=== PATIENT | female | born 1995 | race American Indian/Alaskan Native ===

== ENCOUNTER 2021-06-30 22:49 | Emergency (ER) | payer SELFPAY ==
--- NOTE | 2021-07-01 04:59 | Emergency Department Report ---
- General Chief Complaint: Dyspnea/Respdistress Stated Complaint: DIFF BREATHING, LUMP BREAST FATIGUE Source: patient Mode of arrival: Ambulatory Limitations: No Limitations - History of Present Illness Initial Comments: 25-year-old female presents to the ED stuffy nose and headache x3-week. Patient states that she recently moved here from [place] and has been dealing with allergy issues. Patient states that she been feeling fatigued at work. She states that she noticed that she is get fatigue when she is bending forward. Patient denies any chest pain ,shortness of breath, nausea or vomiting at present time. Patient is alert and oriented x3. No acute distress noted. No ill appearance noted. MD Complaint: nasal congestion Severity scale (0 -10): 0 Improves With: nothing Worsens With: nothing - Related Data Previous Rx's Medication Instructions Recorded Last Taken Type Doxycycline Hyclate [Doxycycline 100 mg PO Q12HR 10 Days #20 tab 07/01/21 Unknown Rx Hyclate TAB] predniSONE [Deltasone] 50 mg PO QDAY 5 Days #5 tab 07/01/21 Unknown Rx Allergies Allergy/AdvReac Type Severity Reaction Status Date / Time Penicillins AdvReac Hives Verified 07/01/21 05:02 ED Review of Systems ROS: Stated complaint: DIFF BREATHING, LUMP BREAST FATIGUE Other details as noted in HPI Constitutional: denies: chills, fever Eyes: denies: eye pain, eye discharge, vision change ENT: denies: ear pain, throat pain Respiratory: denies: cough, shortness of breath, wheezing Cardiovascular: denies: chest pain, palpitations Endocrine: no symptoms reported Gastrointestinal: denies: abdominal pain, nausea, diarrhea Genitourinary: denies: urgency, dysuria, discharge Musculoskeletal: denies: back pain, joint swelling, arthralgia Skin: denies: rash, lesions Neurological: denies: headache, weakness, paresthesias Psychiatric: denies: anxiety, depression Hematological/Lymphatic: denies: easy bleeding, easy bruising ED Past Medical Hx - Medications Home Medications: Home Medications Medication Instructions Recorded Confirmed Last Taken Type Doxycycline Hyclate [Doxycycline 100 mg PO Q12HR 10 Days #20 tab 07/01/21 Unknown Rx Hyclate TAB] predniSONE [Deltasone] 50 mg PO QDAY 5 Days #5 tab 07/01/21 Unknown Rx ED Physical Exam - General Limitations: No Limitations General appearance: alert, in no apparent distress - Head Head exam: Present: atraumatic, normocephalic - Eye Eye exam: Present: normal appearance - ENT ENT exam: Present: mucous membranes moist - Expanded ENT Exam Expanded TM/Canal exam: Mastoid Tenderness: Right TM, Left TM (frontal ) - Neck Neck exam: Present: normal inspection - Respiratory Respiratory exam: Present: normal lung sounds bilaterally. Absent: respiratory distress - Cardiovascular Cardiovascular Exam: Present: regular rate, normal rhythm. Absent: systolic murmur, diastolic murmur, rubs, gallop - GI/Abdominal GI/Abdominal exam: Present: soft, normal bowel sounds - Extremities Exam Extremities exam: Present: normal inspection - Back Exam Back exam: Present: normal inspection - Neurological Exam Neurological exam: Present: alert, oriented X3 - Psychiatric Psychiatric exam: Present: normal affect, normal mood - Skin Skin exam: Present: warm, dry, intact, normal color. Absent: rash ED Course Vital Signs 06/30/21 22:52 Temperature 98.4 F Pulse Rate 88 Respiratory 18 Rate Blood Pressure 149/78 O2 Sat by Pulse 97 Oximetry ED Medical Decision Making - Medical Decision Making 25-year-old female presents to the ED stuffy nose and headache x3-week. Patient states that she recently moved here from [place] and has been dealing with allergy issues. Patient states that she been feeling fatigued at work. She states that she noticed that she is get fatigue when she is bending forward. Patient denies any chest pain ,shortness of breath, nausea or vomiting at present time. Patient is alert and oriented x3. No acute distress noted. No ill appearance noted. Physical examination patient frontal tenderness noted. Rechecked the patient is resting quietly quietly and comfortable and feeling better. I discussed the results of diagnostic study, my clinical impression and the plan for further treatment with the patient. Patient agrees with plan and discharge at this present time. All question addressed. I have given the patient instruction regarding a diagnosis ,expectation ,follow- up and return precaution. I explained to the patient that emergent condition may arise and to return to the ED for new worsen and any new persisting condition. I have explained the importance of following up with the primary care physician or referral physician listed below has instructed. The patient verbalized understanding of discharge instruction. Critical care attestation.: If time is entered above; I have spent that time in minutes in the direct care of this critically ill patient, excluding procedure time. ED Disposition Clinical Impression: Acute sinusitis Qualifiers: Sinusitis location: frontal Recurrence: non-recurrent Qualified Code(s): J01.10 - Acute frontal sinusitis, unspecified Disposition: HOME / SELF CARE / HOMELESS Is pt being admited?: No Does the pt Need Aspirin: No Condition: Stable Instructions: Sinusitis, Adult, [id number] Additional Instructions: Take medication as prescribed Return to the ED for any worsening symptom Prescriptions: predniSONE [Deltasone] 50 mg PO QDAY 5 Days #5 tab Doxycycline Hyclate [Doxycycline Hyclate TAB] 100 mg PO Q12HR 10 Days #20 tab Referrals: [facility] [Provider Group] - 3-5 Days Forms: Work/School Release Form(ED) Time of Disposition: 05:05
[2021-07-01 05:38] VITALS: BP 137/74
== END 2021-07-01 05:38 | disposition home or self-care (01) ==
LOC: ED 22:49
DX: J01.90 Acute sinusitis, unspecified (principal); Z88.0 Allergy status to penicillin; Z79.899 Other long term (current) drug therapy
CPT/HCPCS: 99282

== ENCOUNTER 2021-07-23 18:55 | Emergency (ER) | payer OTHER ==
[2021-07-24] MEDS ORDERED: CLINDAMYCIN 150 MG CAP PO ONE (01:09)
[2021-07-24] MEDS ORDERED: HYDROcodone/ACETAMINOPHEN 5-325 MG TAB PO ONE (01:09)
[2021-07-24] MEDS ORDERED: IBUPROFEN 600 MG TAB PO ONE (01:09)
[2021-07-24] MEDS ORDERED: ONDANSETRON 4 MG ODT TAB PO ONE (01:09)
--- NOTE | 2021-07-24 01:42 | Emergency Department Report ---
ED General Adult HPI - General Chief complaint: Dental/Oral Stated complaint: CHIPPED/INFLAMED GUMS Source: patient Mode of arrival: Ambulatory Limitations: No Limitations - History of Present Illness Initial comments: Patient is a 25-year-old -[place] female with no past medical history who presents to the ED with complaint of acute onset persistent right mandibular premolar molar tooth ache with swollen gums and multiple dental caries for the last 5 days. Patient states that she has been taking [id number] medication with no relief. Patient said that she has not been able to sleep or eat because of pain. Patient denies dizziness, syncope, fever, chills, cough, nausea and vomiting, headache, sore throat, chest pain or shortness of breath or abdominal pain. MD Complaint: dental pain, swollen gums -: Sudden, days(s) (5) Location: mouth Radiation: non-radiation Severity scale (0 -10): 8 Quality: aching, sharp Consistency: constant Improves with: none Worsens with: eating Associated Symptoms: denies other symptoms. denies: confusion, chest pain, cough, diaphoresis, fever/chills, headaches, loss of appetite, malaise, nausea/vomiting, rash, shortness of breath, syncope, weakness Treatments Prior to Arrival: none - Related Data Previous Rx's Medication Instructions Recorded Last Taken Type Doxycycline Hyclate [Doxycycline 100 mg PO Q12HR 10 Days #20 tab 07/01/21 Unknown Rx Hyclate TAB] predniSONE [Deltasone] 50 mg PO QDAY 5 Days #5 tab 07/01/21 Unknown Rx Clindamycin [Clindamycin CAP] 300 mg PO Q8H #30 cap 07/24/21 Unknown Rx Ketorolac [Toradol] 10 mg PO Q8H PRN #20 tab 07/24/21 Unknown Rx traMADoL [Ultram] 50 mg PO Q6HR PRN #12 tablet 07/24/21 Unknown Rx Allergies Allergy/AdvReac Type Severity Reaction Status Date / Time Penicillins AdvReac Hives Verified 07/01/21 05:02 ED Review of Systems ROS: Stated complaint: CHIPPED/INFLAMED GUMS Other details as noted in HPI Constitutional: denies: chills, fever Eyes: denies: eye pain, eye discharge, vision change ENT: dental pain (right mandibular premolar and molar toothache), other (swollen painful gums). denies: ear pain, throat pain, hearing loss, epistaxis, congestion Respiratory: denies: cough, shortness of breath, wheezing Cardiovascular: denies: chest pain, palpitations Endocrine: no symptoms reported Gastrointestinal: denies: abdominal pain, nausea, vomiting, diarrhea Genitourinary: denies: urgency, dysuria, discharge Musculoskeletal: denies: back pain, joint swelling, arthralgia Skin: denies: rash, lesions Neurological: denies: headache, weakness, paresthesias Psychiatric: denies: anxiety, depression Hematological/Lymphatic: denies: easy bleeding, easy bruising ED Past Medical Hx - Medications Home Medications: Home Medications Medication Instructions Recorded Confirmed Last Taken Type Doxycycline Hyclate [Doxycycline 100 mg PO Q12HR 10 Days #20 tab 07/01/21 Unknown Rx Hyclate TAB] predniSONE [Deltasone] 50 mg PO QDAY 5 Days #5 tab 07/01/21 Unknown Rx Clindamycin [Clindamycin CAP] 300 mg PO Q8H #30 cap 07/24/21 Unknown Rx Ketorolac [Toradol] 10 mg PO Q8H PRN #20 tab 07/24/21 Unknown Rx traMADoL [Ultram] 50 mg PO Q6HR PRN #12 tablet 07/24/21 Unknown Rx ED Physical Exam - General Limitations: No Limitations General appearance: alert, in no apparent distress - Head Head exam: Present: atraumatic, normocephalic, normal inspection - Eye Eye exam: Present: normal appearance, PERRL, EOMI Pupils: Present: normal accommodation - ENT ENT exam: Present: mucous membranes moist, TM's normal bilaterally, normal external ear exam, other (Swollen, tender right mandibular gingiva; tender right mandibular premolar and molar teeth) - Neck Neck exam: Present: normal inspection, full ROM. Absent: tenderness - Respiratory Respiratory exam: Present: normal lung sounds bilaterally. Absent: respiratory distress, wheezes, rales, stridor, chest wall tenderness, accessory muscle use, decreased breath sounds, prolonged expiratory - Cardiovascular Cardiovascular Exam: Present: regular rate, normal rhythm, normal heart sounds. Absent: systolic murmur, diastolic murmur, rubs, gallop - GI/Abdominal GI/Abdominal exam: Present: soft, normal bowel sounds. Absent: tenderness, guarding, rebound, hyperactive bowel sounds, hypoactive bowel sounds, organomegaly - Extremities Exam Extremities exam: Present: normal inspection, full ROM, normal capillary refill. Absent: tenderness - Back Exam Back exam: Present: normal inspection, full ROM. Absent: tenderness, CVA tenderness (R), CVA tenderness (L), muscle spasm, paraspinal tenderness, vertebral tenderness - Neurological Exam Neurological exam: Present: alert, oriented X3, CN II-XII intact, normal gait, reflexes normal - Psychiatric Psychiatric exam: Present: normal affect, normal mood - Skin Skin exam: Present: warm, dry, intact, normal color. Absent: rash ED Course Vital Signs 07/23/21 19:12 Temperature 98.0 F Pulse Rate 78 Respiratory 18 Rate Blood Pressure 140/101 O2 Sat by Pulse 98 Oximetry ED Medical Decision Making - Medical Decision Making This is a 25-year-old -[place] female with no past medical history who presents to the ED with complaint of acute onset persistent right mandibular premolar molar tooth ache with swollen gums and multiple dental caries for the last 5 days. Patient states that she has been taking [id number] medication with no relief. Patient said that she has not been able to sleep or eat because of pain. In the ED, patient is alert and oriented x3 and is not in any distress. Patient is hemodynamically stable. Patient was treated for pain in the ED and also given initial oral antibiotics in the ED. On reevaluation, patient's pain is well controlled medication. Patient will discharge home on pain medications and antibiotics and advised to follow-up with her dentist in 7 to 10 days for reevaluation or return to the ED immediately if symptoms get worse. - Differential Diagnosis Dental abscess; gingivitis; dental caries Critical care attestation.: If time is entered above; I have spent that time in minutes in the direct care of this critically ill patient, excluding procedure time. ED Disposition Clinical Impression: Dental abscess, Dental caries, Acute gingivitis Disposition: HOME / SELF CARE / HOMELESS Is pt being admited?: No Does the pt Need Aspirin: No Condition: Stable Instructions: Dental Abscess, [id number], Dental Extraction, [id number], Trench Mouth Additional Instructions: Take medication with food, drink plenty of fluids and follow-up with your dentist or primary care physician in 7 to 10 days for reevaluation. Return to the ED immediately if symptoms get worse. Prescriptions: Clindamycin [Clindamycin CAP] 300 mg PO Q8H #30 cap Ketorolac [Toradol] 10 mg PO Q8H PRN #20 tab PRN Reason: Pain traMADoL [Ultram] 50 mg PO Q6HR PRN #12 tablet PRN Reason: Pain Referrals: AMANDA MARTINES MD [Primary Care Provider] - 3-5 Days Time of Disposition: 01:43 Print Language: SENEGALESE
[2021-07-24 05:10] VITALS: BP 106/72
== END 2021-07-24 02:51 | disposition home or self-care (01) ==
LOC: ED 18:55
DX: K02.9 Dental caries, unspecified (principal); K04.7 Periapical abscess without sinus; K05.00 Acute gingivitis, plaque induced
CPT/HCPCS: 99282; J3490; Q0162

== ENCOUNTER 2021-08-29 01:41 | Emergency (ER) | payer OTHER ==
[2021-08-29 03:43] VITALS: BP 128/105
== END 2021-08-29 03:25 | disposition left against medical advice (07) ==
LOC: ED 01:41
DX: B37.9 Candidiasis, unspecified (principal); Z53.21 Procedure and treatment not carried out due to patient leaving prior to being seen by health care provider